=== PATIENT | female | born 1970 | race African-American/Black ===

== ENCOUNTER 2018-07-16 05:38 | Day surgery (SDC) | payer OTHER ==
[~2018-07-16] VITALS: Ht 152.4 cm; Wt 91.2 kg
[2018-07-16] VITALS (14 sets, daily range): BP systolic 108–131; BP diastolic 70–84; PULSE 60–95; RESP 16–18; Ht 152.4 cm; Wt 91.2 kg
[~2018-07-16 05:38] MED LIST: CEFAZOLIN 2 GM/50 ML (PMX) 50 ML IVPB ONE; SOD CHLORIDE 0.9% 1,000 ML IV ONE
[2018-07-16] MEDS ORDERED: BUPIVACAINE 0.25% (MPF) 30 ML INJ ONE (06:58)
--- NOTE | 2018-07-16 07:16 | PREAC ---
Date/Time of Note Date/Time of Note DATE: 07/16/18 TIME: 07:15 Anesthesia Eval and Record Evaluation Time Pre-Procedure Interview DATE: 07/16/18 TIME: 07:15 Age 47 Sex female NPO: 8 hrs Preoperative diagnosis left back mass Planned procedure excision of left back mass Past Medical History Past Medical History: Includes GI: Obesity Surgery & Anesthesia Issues No known issue Meds Anticoagulation: No Beta Antonio within 24 hr: No Reason Beta Antonio not given: Pt. not on B-Antonio No Active Prescriptions or Reported Meds Current Medications Sodium Chloride 1,000 ml @ 75 mls/hr [id number] ONCE IV Last administered on 07/16/18at 07:10; Admin Dose 75 MLS/HR; Start 07/16/18 at 05:30; Stop 07/16/18 at 18:49 Meds reviewed: Yes Allergies Coded Allergies: No Known Allergy (Unverified , 07/16/18) Allergies Reviewed: Yes Labs/Studies Labs Reviewed: Reviewed by anesthesiologist Result Diagram: 07/16/18 0613 Laboratory Tests 07/16/18 06:13 test: Negative Pre-procedure Exam Airway: Adequate mouth opening, Adequate thyromental dist Mallampati: Mallampati II Teeth: Normal Lung: Normal Heart: Normal ASA Physical Status ASA physical status: 2 Emergency: None Planned Anesthetic General/MAC: LMA Planned Pain Management Parenteral pain med, Local by surgeon Pre-operative Attestations Prior to commencing anesthesia and surgery, the patient was re-evaluated, there was verification of: *The patient's identity *The results of appropriate recent lab work and preoperative vital signs *The above evaluation not changing prior to induction *Anesthetic plan, risk benefits, alternative and complications discussed with patient/family; questions answered; patient/family understands, accepts and wishes to proceed. SHANE FLYNN MD Jul 16, 2018 07:16
[2018-07-16] MEDS ORDERED: PROPOFOL 20 ML ONE ×2 (07:23→07:52)
[2018-07-16] MEDS ORDERED: LIDOCAINE 2% (SDV) 5 ML INJ ONE (07:23)
[2018-07-16] MEDS ORDERED: MIDAZOLAM 1 MG/ML 2 ML INJ ONE (07:24)
[2018-07-16] MEDS ORDERED: ONDANSETRON 4 MG INJ IV PRN (07:30)
[2018-07-16] MEDS ORDERED: MEPERIDINE 25 MG INJ IV PRN (07:30)
[2018-07-16] MEDS ORDERED: HYDROmorphONE 1 MG/5 ML IV SYRINGE IV PRN ×3 (07:30)
[2018-07-16] MEDS ORDERED: DIPHENHYDRAMINE 50 MG INJ IV PRN (07:30)
[2018-07-16] MEDS ORDERED: PROCHLORPERAZINE 10 MG INJ IV PRN (07:30)
[2018-07-16] MEDS ORDERED: FENTAnyl 50 MCG/ML VIAL IV PRN (07:30)
[2018-07-16] MEDS ORDERED: OXYCODONE/ACETAMINOPHEN (5/325) TAB PO PRN (07:30)
[2018-07-16] MEDS ORDERED: CEFAZOLIN 1 GM INJ ONE (07:49)
[2018-07-16] MEDS ORDERED: FAMOTIDINE 20 MG INJ ONE (07:50)
[2018-07-16] MEDS ORDERED: DEXAMETHASONE 4 MG/ML 5 ML INJ ONE (07:50)
[2018-07-16] MEDS ORDERED: ONDANSETRON 4 MG INJ ONE (07:50)
[2018-07-16] MEDS ORDERED: FENTAnyl 50 MCG/ML VIAL ONE (07:59)
[2018-07-16] MEDS ORDERED: EPHEDrine 25 MG/5 ML SYG ONE (08:14)
--- NOTE | 2018-07-16 08:27 | OPR ---
Date/Time of Note Date/Time of Note DATE: 07/16/18 TIME: 08:23 Operative Report Procedure Date: Jul 16, 2018 Preoperative Diagnosis left back tumor Postoperative Diagnosis same Operation/Procedure Performed 1. excision of left back tumor 18 cm x 4 cm tumor 18 cm incision 2. localized adjacent tissue transfer with use of skin flaps 72 sq cm defect of the left back 3. 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 She required surgical excision. Risks alternatives benefits personally discussed the patient. Patient expressed understanding consents to the operation. Procedure Description Patient is taken to the OR and prepped and draped in usual sterile fashion. Surgical time was performed. IV antibiotics given. Elliptical incision was made with a 10 blade over the left back tumor. Dissection with cautery skin onto the tumor and the tumor circumferentially excised. Good hemostasis status. Due to very large tissue defect localization to his transfer with these of skin flaps were performed. Multilayer closed with interrupted 3-0 Vicryl in interrupted 2-0 Vicryl. Skin was closed and skin gurdeep. Therapeutic contains local anesthesia was injected at the incision site. Dry dressings were applied. Sandra RAMOS Jul 16, 2018 08:27
[2018-07-16] MEDS ORDERED: HYDROCODONE/APAP (5/325) TAB PO ONE (08:30)
--- NOTE | 2018-07-16 08:32 | PAC ---
Date/Time of Note Date/Time of Note DATE: 07/16/18 TIME: 08:31 Post-Anesthesia Notes Post-Anesthesia Note Last documented vital signs Vital Signs Date Temp Pulse Resp B/P (MAP) Pulse Ox O2 O2 Flow FiO2 Time Delivery Rate 07/16/18 98.0 66 18 117/83 100 Room Air 07:11 (94) Activity: WNL Respiratory function: WNL Cardiovascular function: WNL Mental status: Baseline Pain reasonably controlled: Yes Hydration appropriate: Yes Nausea/Vomiting absent: Yes Comments BP: 118/84 HR: 95 RR: 15 T: 97.9 SaO2: 100% SHANE FLYNN MD Jul 16, 2018 08:32
== END 2018-07-16 10:16 | disposition home or self-care (01) ==
LOC: SDS 05:38
PROVIDERS: ATTEND Surgery
DX: D17.1 Benign lipomatous neoplasm of skin and subcutaneous tissue of trunk (principal)
CPT/HCPCS: 14301; 14302; 80053; 85025; 85610; 85730; 88307; J0690; J1100; J1170; J2250; J2405; J3010; Z7610